=== PATIENT | female | born 1940 | race Caucasian/White ===

== ENCOUNTER 2017-08-30 03:47 | Emergency (ER) | payer OTHER, BC ==
[2017-08-30 04:24] LABS: PLATELET COUNT 194 10^3/uL (150-400)
[2017-08-30] MEDS ORDERED: NS 1,000 ML IV ONE (04:40)
--- NOTE | 2017-08-30 05:40 | EDPHY ---
H & P Stated Complaint: syncope at home with nausea Time Seen by Provider: 08/30/17 03:54 HPI/ROS: Chief Complaint: Syncope, nausea HPI: 76-year-old woman with a history of colon cancer. She is visiting from out out of town. Patient normally takes Zofran for her oral chemotherapy but forgot them at home. She woke up this morning feeling quite nauseated and went to the bathroom. While sitting in the bathroom patient had a wave of severe nausea and then woke up on the floor. Patient denies any chest pain or palpitations prior to this. Patient states that right before passing out she felt very warm and her vision got a little bit dark. No fever or chills. She is scheduled to go back home tomorrow. No chest pain or palpitations. No history of syncope in the past. No history of coronary artery disease. Had a stress test a year to ago which was normal. No family history of sudden cardiac . ROS: 10 point Review of Systems is negative except as noted in the HPI. PMH: Colon cancer Social History: No smoking, no alcohol, no recreational drug use Family History: non-contributory Physical Exam: Gen: Awake, Alert, No Distress HEENT: Nose: no rhinorrhea Eyes: PERRLA, EOMI Mouth: Moist mucosa Neck: Supple, no JVD Chest: nontender, lungs clear to auscultation Heart: S1, S2 normal, no murmur Abd: Soft, non-tender, no guarding Back: no CVA tenderness, no midline tenderness Ext: no edema, non-tender Skin: no rash Neuro: CN II-XII intact, Sensation grossly intact, Strength 5/5 in bilateral upper and lower extremities - Personal History Current Tetanus/Diphtheria Vaccine: Yes Current Tetanus Diphtheria and Acellular Pertussis (TDAP): Yes - Medical/Surgical History Hx Asthma: No Hx Chronic Respiratory Disease: No Hx Diabetes: No Hx Cardiac Disease: No Hx Renal Disease: No Hx Cirrhosis: No Hx Alcoholism: No Hx HIV/AIDS: No Hx Splenectomy or Spleen Trauma: No Other PMH: colon ca. cervical fusion. carpal tunnel - Social History Smoking Status: Never smoked Constitutional: Initial Vital Signs Temperature (C) 36.3 C 08/30/17 03:50 Heart Rate 61 08/30/17 03:50 Respiratory Rate 18 08/30/17 03:50 Blood Pressure 181/100 H 08/30/17 03:50 O2 Sat (%) 94 08/30/17 03:50 O2 Delivery Mode Room Air Allergies/Adverse Reactions: No Known Allergies Allergy (Unverified 08/30/17 04:32) Home Medications: Medication Instructions Recorded Caltrate+D3 Plus Mineral Minis 08/30/17 Capecitabine 08/30/17 CeleBREX 08/30/17 Flexeril 10 MG (*) 08/30/17 Lisinopril/Hctz 20/12.5MG 08/30/17 Lyrica 100mg (*) 08/30/17 Metoprolol Tartrate 08/30/17 Ondansetron HCl Pf 08/30/17 Premarin 0.625 MG (*) 08/30/17 Vit B6 08/30/17 Medical Decision Making - Diagnostics EKG Interpretation: ECG time 4:04 a.m., sinus rhythm with a rate of 57, there is a left anterior fascicular block. Nonspecific T-wave changes. Normal intervals, no ectopy. Imaging Results: Chest x-ray is negative per my interpretation. Imaging: I viewed and interpreted images myself ED Course/Re-evaluation: 76-year-old woman history of colon cancer with severe nausea had a syncopal event while in the bathroom after a wave of nausea. Symptoms certainly sound vasovagal. She does not have a entirely normal ECG but has had a negative cardiac workup in the past. Her troponin here is negative. There are no interval changes or ectopic beats on her ECG. I have explained to her that it is possible that this is cardiac in nature but given the circumstances of her having severe nausea that it is more consistent with a vasovagal episode. She does not wish to stay in the hospital. She is scheduled to return home tomorrow. I have encouraged her to return to the emergency department for any concerns. She is electing not to stay for further evaluation at this time. - Data Points Laboratory Results: Laboratory Results 08/30/17 04:00 08/30/17 04:00 08/30/17 08/30/17 04:00 04:00 WBC 8.04 10^3/uL 10^3/uL (3.80-9.50) RBC 4.00 10^6/uL L 10^6/uL (4.18-5.33) Hgb 13.4 g/dL g/dL (12.6-16.3) Hct 38.4 % % (38.0-47.0) MCV 96.0 fL fL (81.5-99.8) MCH 33.5 pg pg (27.9-34.1) MCHC 34.9 g/dL g/dL (32.4-36.7) RDW 20.1 % H % (11.5-15.2) Plt Count 194 10^3/uL 10^3/uL (150-400) MPV 9.4 fL fL (8.7-11.7) Neut % (Auto) 63.6 % % (39.3-74.2) Lymph % (Auto) 22.6 % % (15.0-45.0) Woodson % (Auto) 8.7 % % (4.5-13.0) Eos % (Auto) 4.2 % % (0.6-7.6) Baso % (Auto) 0.5 % % (0.3-1.7) Nucleat RBC Rel Count 0.0 % % (0.0-0.2) Absolute Neuts (auto) 5.11 10^3/uL 10^3/uL (1.70-6.50) Absolute Lymphs (auto) 1.82 10^3/uL 10^3/uL (1.00-3.00) Absolute Monos (auto) 0.70 10^3/uL 10^3/uL (0.30-0.80) Absolute Eos (auto) 0.34 10^3/uL 10^3/uL (0.03-0.40) Absolute Basos (auto) 0.04 10^3/uL 10^3/uL (0.02-0.10) Absolute Nucleated RBC 0.00 10^3/uL 10^3/uL (0-0.01) Immature Gran % 0.4 % % (0.0-1.1) Immature Gran # 0.03 10^3/uL 10^3/uL (0.00-0.10) Platelet Estimate ADEQUATE (ADEQ) Polychromasia 1+ H Oval Macrocytes 1+ H Sodium 129 mEq/L L mEq/L (135-145) Potassium 3.9 mEq/L mEq/L (3.3-5.0) Chloride 88 mEq/L L mEq/L (97-110) Carbon Dioxide 29 mEq/l mEq/l (22-31) Anion Gap 12 mEq/L mEq/L (8-16) BUN 20 mg/dL mg/dL (7-23) Creatinine 1.2 mg/dL H mg/dL (0.6-1.0) Estimated GFR 44 Glucose 97 mg/dL mg/dL (70-100) Calcium 9.9 mg/dL mg/dL (8.5-10.4) Troponin I < 0.012 ng/mL ng/mL (0.000-0.034) Medications Given: Discontinued Medications Sodium Chloride (Ns) 1,000 mls @ 0 mls/hr IV EDNOW ONE; Wide Open PRN Reason: Protocol Stop: 08/30/17 04:41 Last Admin: 08/30/17 04:15 Dose: 1,000 mls Departure - Departure Disposition: Home, Routine, Self-Care Clinical Impression: Vasovagal syncope Condition: Good Instructions: Syncope (ED) Additional Instructions: Return to the emergency department immediately for further fainting, chest pain , palpitations, uncontrolled nausea vomiting, shortness of breath, or any other concerns. Follow up with her primary care physician early next week when you return home. Referrals: NONE *PRIMARY CARE P,. [Primary Care Provider] - As per Instructions
[2017-08-30 05:55] VITALS: BP 172/87
[2017-08-30] MEDS ORDERED: ONDANSETRON 4MG PREPACK#2 BTL TAKEHOME ONE (05:55)
== END 2017-08-30 06:15 | disposition home or self-care (01) ==
DX: R55 Syncope and collapse (principal); E86.9 Volume depletion, unspecified; Z85.038 Personal history of other malignant neoplasm of large intestine